=== PATIENT | male | born 1955 | race Caucasian/White ===

== ENCOUNTER → 2018-04-08 | Outpatient (CLI) | payer OTHER ==
[~2018-04-08] MED LIST: ASPI81TA86 PO; CEPH-13 PO; HYDR-385 PO
--- NOTE | 2018-04-10 20:48 | RT HOLTER TEST ---
FACILITY: [facility] [place] PATIENT NAME: SYLVIA BALTAZAR : [id number] MR: [id number] V: [id number] EXAM DATE: ORDERING PHYSICIAN: SYLVAIN BYRD TECHNOLOGIST: JOSE Hook-up date: 2018-04-08 13:19:00 Duration: 47:51:00 Test Indications: PALPITATIONS Medications: N/A [id number] QRS complexes 6 Ventricular ectopics which represent <1 % of total QRS comp. 10 Supraventricular ectopics which represent <1 % of total QRS comp. * Paced QRS complexes which represent % of total QRS comp. VENTRICULAR ECTOPY 6 Isolated 0 Bigeminal Cycles 0 Couplets 0 Runs 0 Beats in Runs * Beats LONGEST at * BPM at :: -- * Beats FASTEST at * BPM at :: -- SUPRAVENTRICULAR ECTOPY 6 Isolated 0 Couplets 1 Runs 4 Beats in Runs 4 Beats LONGEST at 160 BPM at 09:08:53 2018-04-10 4 Beats FASTEST at 160 BPM at 09:08:53 2018-04-10 HEART RATES 47 MIN at 04:48:59 2018-04-09 79 AVG 167 MAX at 11:47:33 2018-04-10 LONGEST RR 1.624 secs at 02:51:09 2018-04-10 S-T LEVELS Channel 1 -12.800 mm MIN at 13:19:00 2018-04-08 -12.800 mm MAX at 13:19:00 2018-04-08 Channel 2 -12.800 mm MIN at 13:19:00 2018-04-08 -12.800 mm MAX at 13:19:00 2018-04-08 Channel 3 -12.800 mm MIN at 13:19:00 2018-04-08 -12.800 mm MAX at 13:19:00 2018-04-08 Very rare ventricular ectopy. No couplets, triplets, or runs recorded. Rare supraventricular ectopy, but it does appear there may be an intermittent ectopic atrial focus a few times during recording. These are noted in the strips as "sinus arrhythmia" and "SVE". No pauses of more than two (2) seconds were recorded. Confirmed by LUCERO PRIDE ([id number] on 04/10/2018 8:48:26 PM Referred By: Overread By: LUCERO PRIDE
== END ==
LOC: RESP 02:03
PROVIDERS: ATTEND Physician Assistant Medical
DX: R00.2 Palpitations (principal)
CPT/HCPCS: 93225; 93226